=== PATIENT | female | born 1935 | race Caucasian/White ===

== ENCOUNTER → 2016-06-07 | Outpatient (CLI) | payer MEDICARE ==
[~2016-06-07] MED LIST: ATEN25TA PO; HYDR-3240 PO; HYDR12.53 PO; LISI2.5T PO; LISI5TAB7 PO; LOVA10TA PO; WARF5TAB PO
== END | disposition home or self-care (01) ==
LOC: LAB 08:27
PROVIDERS: ATTEND Nurse Practitioner Family
DX: I82.402 Acute embolism and thrombosis of unspecified deep veins of left lower extremity (principal)
CPT/HCPCS: 36415; 85610

== ENCOUNTER → 2016-07-05 | Outpatient (CLI) | payer MEDICARE | END | disposition home or self-care (01) | LOC: CFH 08:37 | PROVIDERS: ATTEND Nurse Practitioner Family | DX: I82.402 Acute embolism and thrombosis of unspecified deep veins of left lower extremity (principal) | CPT/HCPCS: 36415; 85610 ==

== ENCOUNTER → 2016-08-02 | Outpatient (CLI) | payer MEDICARE | END | disposition home or self-care (01) | LOC: CFH 08:25 | PROVIDERS: ATTEND Nurse Practitioner Family | DX: I82.402 Acute embolism and thrombosis of unspecified deep veins of left lower extremity (principal) | CPT/HCPCS: 36415; 85610 ==

== ENCOUNTER → 2016-08-30 | Outpatient (CLI) | payer MEDICARE | END | disposition home or self-care (01) | LOC: CFH 07:52 | PROVIDERS: ATTEND Nurse Practitioner Family | DX: I82.402 Acute embolism and thrombosis of unspecified deep veins of left lower extremity (principal) | CPT/HCPCS: 36415; 85610 ==

== ENCOUNTER → 2016-09-27 | Outpatient (CLI) | payer MEDICARE ==
[2016-09-27 12:55] LABS: ASPARTATE AMINO TRANSFERASE 25 U/L (15-37); BLOOD UREA NITROGEN 26 mg/dL (7-18)
== END | disposition home or self-care (01) ==
LOC: CFH 08:13
PROVIDERS: ATTEND Nurse Practitioner Family
DX: I82.402 Acute embolism and thrombosis of unspecified deep veins of left lower extremity (principal); E78.5 Hyperlipidemia, unspecified
CPT/HCPCS: 36415; 80053; 80061; 85025; 85610

== ENCOUNTER → 2016-10-25 | Outpatient (CLI) | payer MEDICARE | END | disposition home or self-care (01) | LOC: LAB 07:59 | PROVIDERS: ATTEND Nurse Practitioner Family | DX: I82.402 Acute embolism and thrombosis of unspecified deep veins of left lower extremity (principal) | CPT/HCPCS: 36415; 85610 ==

== ENCOUNTER → 2016-11-22 | Outpatient (CLI) | payer MEDICARE | END | disposition home or self-care (01) | LOC: LAB 09:01 | PROVIDERS: ATTEND Internal Medicine Cardiovascular Disease | DX: Z79.01 Long term (current) use of anticoagulants (principal) | CPT/HCPCS: 36415; 85610; 85730 ==

== ENCOUNTER → 2016-12-20 | Outpatient (CLI) | payer MEDICARE | END | disposition home or self-care (01) | LOC: CFH 08:28 | PROVIDERS: ATTEND Internal Medicine Cardiovascular Disease | DX: M17.11 Unilateral primary osteoarthritis, right knee (principal); I70.201 Unspecified atherosclerosis of native arteries of extremities, right leg; I74.2 Embolism and thrombosis of arteries of the upper extremities | CPT/HCPCS: 36415; 85610 ==

== ENCOUNTER → 2017-01-22 | Outpatient (CLI) | payer MEDICARE | END | disposition home or self-care (01) | LOC: CFH 08:56 | PROVIDERS: ATTEND Internal Medicine Cardiovascular Disease | DX: I74.2 Embolism and thrombosis of arteries of the upper extremities (principal) | CPT/HCPCS: 36415; 85610 ==

== ENCOUNTER → 2017-02-07 | Outpatient (CLI) | payer MEDICARE | END | disposition home or self-care (01) | LOC: LAB 09:53 | PROVIDERS: ATTEND Internal Medicine Cardiovascular Disease | DX: I74.2 Embolism and thrombosis of arteries of the upper extremities (principal) | CPT/HCPCS: 36415; 85610 ==

== ENCOUNTER → 2017-03-12 | Outpatient (CLI) | payer MEDICARE ==
[2017-03-12 12:51] LABS: INTERNATIONAL NORMALIZED RATIO 2.02 (0.93-1.1); PROTHROMBIN TIME 20.7 Seconds (9.6-11.5)
== END | disposition home or self-care (01) ==
LOC: CFH 08:42
PROVIDERS: ATTEND Internal Medicine Cardiovascular Disease
DX: I74.2 Embolism and thrombosis of arteries of the upper extremities (principal)
CPT/HCPCS: 36415; 85610

== ENCOUNTER → 2017-03-26 | Outpatient (CLI) | payer MEDICARE ==
[2017-03-26 12:47] LABS: INTERNATIONAL NORMALIZED RATIO 1.63 (0.93-1.1); PROTHROMBIN TIME 16.8 Seconds (9.6-11.5)
== END | disposition home or self-care (01) ==
LOC: CFH 08:31
PROVIDERS: ATTEND Internal Medicine Cardiovascular Disease
DX: I74.2 Embolism and thrombosis of arteries of the upper extremities (principal)
CPT/HCPCS: 36415; 85610

== ENCOUNTER → 2017-04-08 | Outpatient (CLI) | payer MEDICARE ==
[2017-04-08 11:55] LABS: INTERNATIONAL NORMALIZED RATIO 1.43 (0.93-1.1); PROTHROMBIN TIME 14.6 Seconds (9.6-11.5)
== END | disposition home or self-care (01) ==
LOC: CFH 10:05
PROVIDERS: ATTEND Internal Medicine Cardiovascular Disease
DX: I74.2 Embolism and thrombosis of arteries of the upper extremities (principal)
CPT/HCPCS: 36415; 85610

== ENCOUNTER → 2017-04-22 | Outpatient (CLI) | payer MEDICARE ==
[2017-04-22 12:48] LABS: INTERNATIONAL NORMALIZED RATIO 2.15 (0.93-1.1); PROTHROMBIN TIME 21.8 Seconds (9.6-11.5)
== END | disposition home or self-care (01) ==
LOC: LAB 08:41
PROVIDERS: ATTEND Internal Medicine Cardiovascular Disease
DX: I74.2 Embolism and thrombosis of arteries of the upper extremities (principal)
CPT/HCPCS: 36415; 85610

== ENCOUNTER → 2017-07-08 | Outpatient (CLI) | payer MEDICARE ==
[2017-07-08 12:34] LABS: INTERNATIONAL NORMALIZED RATIO 1.79 (0.93-1.1); PROTHROMBIN TIME 18.4 Seconds (9.6-11.5)
== END | disposition home or self-care (01) ==
LOC: CFH 08:46
PROVIDERS: ATTEND Internal Medicine Cardiovascular Disease
DX: I74.2 Embolism and thrombosis of arteries of the upper extremities (principal)
CPT/HCPCS: 36415; 85610

== ENCOUNTER → 2017-08-05 | Outpatient (CLI) | payer MEDICARE ==
[2017-08-05 12:41] LABS: INTERNATIONAL NORMALIZED RATIO 1.77 (0.93-1.1)
== END | disposition home or self-care (01) ==
LOC: CFH 08:26
PROVIDERS: ATTEND Internal Medicine Cardiovascular Disease
DX: I74.2 Embolism and thrombosis of arteries of the upper extremities (principal)
CPT/HCPCS: 36415; 85610

== ENCOUNTER → 2017-08-26 | Outpatient (CLI) | payer MEDICARE | END | disposition home or self-care (01) | LOC: CVU 12:30 | PROVIDERS: ATTEND Family Medicine | DX: I74.2 Embolism and thrombosis of arteries of the upper extremities (principal); I10 Essential (primary) hypertension; E78.5 Hyperlipidemia, unspecified; Z87.891 Personal history of nicotine dependence | CPT/HCPCS: 93922 ==

== ENCOUNTER → 2017-09-02 | Outpatient (CLI) | payer MEDICARE ==
[2017-09-02 12:37] LABS: INTERNATIONAL NORMALIZED RATIO 2.36 (0.93-1.1); PROTHROMBIN TIME 24.1 Seconds (9.6-11.5)
== END | disposition home or self-care (01) ==
LOC: CFH 08:08
PROVIDERS: ATTEND Internal Medicine Cardiovascular Disease
DX: I74.2 Embolism and thrombosis of arteries of the upper extremities (principal)
CPT/HCPCS: 36415; 85610

== ENCOUNTER → 2017-09-18 | Outpatient (CLI) | payer MEDICARE ==
[2017-09-18 12:55] LABS: INTERNATIONAL NORMALIZED RATIO 2.23 (0.93-1.1); PROTHROMBIN TIME 22.8 Seconds (9.6-11.5)
== END | disposition home or self-care (01) ==
LOC: CFH 09:55
PROVIDERS: ATTEND Internal Medicine Cardiovascular Disease
DX: I74.2 Embolism and thrombosis of arteries of the upper extremities (principal)
CPT/HCPCS: 36415; 85610

== ENCOUNTER → 2017-10-16 | Outpatient (CLI) | payer MEDICARE ==
[2017-10-16 13:08] LABS: INTERNATIONAL NORMALIZED RATIO 2.07 (0.93-1.1)
== END | disposition home or self-care (01) ==
LOC: CFH 07:58
PROVIDERS: ATTEND Internal Medicine Cardiovascular Disease
DX: I74.2 Embolism and thrombosis of arteries of the upper extremities (principal); Z87.891 Personal history of nicotine dependence
CPT/HCPCS: 36415; 85610

== ENCOUNTER → 2017-11-14 | Outpatient (CLI) | payer MEDICARE ==
[2017-11-14 13:38] LABS: INTERNATIONAL NORMALIZED RATIO 2.57 (0.93-1.1); PROTHROMBIN TIME 26.2 Seconds (9.6-11.5)
== END | disposition home or self-care (01) ==
LOC: CFH 08:56
PROVIDERS: ATTEND Internal Medicine Cardiovascular Disease
DX: I74.2 Embolism and thrombosis of arteries of the upper extremities (principal); Z87.891 Personal history of nicotine dependence
CPT/HCPCS: 36415; 85610

== ENCOUNTER → 2017-12-17 | Outpatient (CLI) | payer MEDICARE ==
[2017-12-17 12:54] LABS: INTERNATIONAL NORMALIZED RATIO 3.36 (0.93-1.1); PROTHROMBIN TIME 33.8 Seconds (9.6-11.5)
== END | disposition home or self-care (01) ==
LOC: CFH 08:45
PROVIDERS: ATTEND Internal Medicine Cardiovascular Disease
DX: I74.2 Embolism and thrombosis of arteries of the upper extremities (principal); Z79.01 Long term (current) use of anticoagulants
CPT/HCPCS: 36415; 85610

== ENCOUNTER → 2018-01-13 | Outpatient (CLI) | payer MEDICARE ==
[2018-01-13 12:38] LABS: BASOPHILS # (AUTO) 0.03 x10^3/uL (0-0.1); BASOPHILS % (AUTO) 1 % (0-1); EOSINOPHILS # (AUTO) 0.21 x10^3/uL (0-0.4); EOSINOPHILS % (AUTO) 3 % (1-7); LYMPHOCYTES % (AUTO) 25 % (22-44); MD NO; MEAN CORPUSCULAR HEMOGLOBIN 29.8 pg (27.0-34.8); MEAN CORPUSCULAR VOLUME 90.5 fL (80-100); MEAN PLATELET VOLUME 9.6 fL (7.4-10.4); MONOCYTES # (AUTO) 0.57 x10^3/uL (0.2-0.8); MONOCYTES % (AUTO) 8 % (2-9); NEUTROPHILS # (AUTO) 4.37 x10^3/uL (1.8-6.8); NEUTROPHILS % (AUTO) 64 % (42-75); PLATELET COUNT 282 x10^3/uL (130-400); RED BLOOD COUNT 4.74 x10^6/uL (3.82-5.3); RED CELL DISTRIBUTION WIDTH 14.4 % (9.6-15.2)
[2018-01-13 12:45] LABS: INTERNATIONAL NORMALIZED RATIO 2.59 (0.93-1.1); PROTHROMBIN TIME 26.5 Seconds (9.6-11.5)
[2018-01-13 12:49] LABS: ALBUMIN 4.1 g/dL (3.4-5.0); ANION GAP 9 mmol/L (5-15); CALCIUM 9.3 mg/dL (8.5-10.1); CHLORIDE 103 mmol/L (98-107)
[2018-01-13 12:52] LABS: ALANINE AMINOTRANSFERASE 26 U/L (12-78); ALKALINE PHOSPHATASE 82 U/L (45-117); BILIRUBIN,TOTAL 0.5 mg/dL (0.2-1.0); CHOL/HDL RATIO 2.7; CHOLESTEROL, TOTAL 234 mg/dL (140-239); CREATININE 0.86 mg/dL (0.55-1.02); HDL CHOL % 37 % (28-40); HDL CHOLESTEROL (DIRECT) 86 mg/dL (40-60); LDL CHOLESTEROL,CALCULATED 127 mg/dL (54-169); LDL/HDL RATIO 1.5 (0.5-3.0); TOTAL PROTEIN 8.2 g/dL (6.4-8.2); TRIGLYCERIDES 106 mg/dL (50-200); VLDL CHOLESTEROL 21 mg/dL (0-25)
== END | disposition home or self-care (01) ==
LOC: CFH 08:02
PROVIDERS: ATTEND Internal Medicine Cardiovascular Disease
DX: I10 Essential (primary) hypertension (principal); I74.2 Embolism and thrombosis of arteries of the upper extremities; Z79.01 Long term (current) use of anticoagulants
CPT/HCPCS: 36415; 80053; 80061; 85025; 85610

== ENCOUNTER → 2018-02-07 | Outpatient (CLI) | payer MEDICARE ==
[~2018-02-07] MED LIST changes: +HYDR12.517 PO; -HYDR12.53 PO
[2018-02-07 12:33] LABS: INTERNATIONAL NORMALIZED RATIO 2.83 (0.93-1.1); PROTHROMBIN TIME 28.8 Seconds (9.6-11.5)
== END | disposition home or self-care (01) ==
LOC: CFH 08:45
PROVIDERS: ATTEND Internal Medicine Cardiovascular Disease
DX: I74.2 Embolism and thrombosis of arteries of the upper extremities (principal)
CPT/HCPCS: 36415; 85610

== ENCOUNTER → 2018-03-07 | Outpatient (CLI) | payer MEDICARE ==
[2018-03-07 12:35] LABS: INTERNATIONAL NORMALIZED RATIO 3.12 (0.93-1.1); PROTHROMBIN TIME 31.7 Seconds (9.6-11.5)
== END | disposition home or self-care (01) ==
LOC: CFH 08:14
PROVIDERS: ATTEND Internal Medicine Cardiovascular Disease
DX: I74.2 Embolism and thrombosis of arteries of the upper extremities (principal)
CPT/HCPCS: 36415; 85610

== ENCOUNTER → 2018-03-31 | Outpatient (CLI) | payer MEDICARE ==
[2018-03-31 16:04] LABS: INTERNATIONAL NORMALIZED RATIO 2.2 (0.93-1.1); PROTHROMBIN TIME 22.6 Seconds (9.6-11.5)
== END | disposition home or self-care (01) ==
LOC: CFH 12:13
PROVIDERS: ATTEND Internal Medicine Cardiovascular Disease
DX: I74.2 Embolism and thrombosis of arteries of the upper extremities (principal); Z79.01 Long term (current) use of anticoagulants
CPT/HCPCS: 36415; 85610

== ENCOUNTER → 2018-04-29 | Outpatient (CLI) | payer MEDICARE ==
[2018-04-29 12:51] LABS: INTERNATIONAL NORMALIZED RATIO 2.14 (0.93-1.1); PROTHROMBIN TIME 21.8 Seconds (9.6-11.5)
== END | disposition home or self-care (01) ==
LOC: CFH 07:48
PROVIDERS: ATTEND Internal Medicine Cardiovascular Disease
DX: Z51.81 Encounter for therapeutic drug level monitoring (principal); I74.2 Embolism and thrombosis of arteries of the upper extremities; Z79.01 Long term (current) use of anticoagulants
CPT/HCPCS: 36415; 85610

== ENCOUNTER → 2018-05-26 | Outpatient (CLI) | payer MEDICARE ==
[2018-05-26 12:54] LABS: INTERNATIONAL NORMALIZED RATIO 2.94 (0.93-1.1); PROTHROMBIN TIME 29.6 Seconds (9.6-11.5)
== END | disposition home or self-care (01) ==
LOC: CFH 08:30
PROVIDERS: ATTEND Internal Medicine Cardiovascular Disease
DX: I74.2 Embolism and thrombosis of arteries of the upper extremities (principal); Z79.01 Long term (current) use of anticoagulants
CPT/HCPCS: 36415; 85610

== ENCOUNTER → 2018-06-23 | Outpatient (CLI) | payer MEDICARE ==
[2018-06-23 12:47] LABS: INTERNATIONAL NORMALIZED RATIO 2.89 (0.93-1.1); PROTHROMBIN TIME 29.1 Seconds (9.6-11.5)
== END | disposition home or self-care (01) ==
LOC: CFH 07:57
PROVIDERS: ATTEND Internal Medicine Cardiovascular Disease
DX: I74.2 Embolism and thrombosis of arteries of the upper extremities (principal); Z79.01 Long term (current) use of anticoagulants
CPT/HCPCS: 36415; 85610

== ENCOUNTER → 2018-07-28 | Outpatient (CLI) | payer MEDICARE ==
[2018-07-28 12:36] LABS: INTERNATIONAL NORMALIZED RATIO 2.03 (0.93-1.1); PROTHROMBIN TIME 20.7 Seconds (9.6-11.5)
== END | disposition home or self-care (01) ==
LOC: CFH 07:46
PROVIDERS: ATTEND Internal Medicine Cardiovascular Disease
DX: I74.2 Embolism and thrombosis of arteries of the upper extremities (principal); Z79.01 Long term (current) use of anticoagulants
CPT/HCPCS: 36415; 85610

== ENCOUNTER 2018-09-08 08:12 | Outpatient (CLI) | payer MEDICARE ==
[2018-09-08 13:09] LABS: INTERNATIONAL NORMALIZED RATIO 2.82 (0.93-1.1); PROTHROMBIN TIME 28.5 Seconds (9.6-11.5)
== END 2018-09-08 23:59 | disposition home or self-care (01) ==
LOC: CFH 08:12
PROVIDERS: ATTEND Internal Medicine Cardiovascular Disease
DX: I74.2 Embolism and thrombosis of arteries of the upper extremities (principal); Z79.01 Long term (current) use of anticoagulants
CPT/HCPCS: 36415; 85610

== ENCOUNTER → 2018-12-31 | Outpatient (CLI) | payer MEDICARE ==
[2018-12-31 13:05] LABS: INTERNATIONAL NORMALIZED RATIO 3.11 (0.93-1.1); PROTHROMBIN TIME 31.3 Seconds (9.6-11.5)
== END | disposition home or self-care (01) ==
LOC: CFH 08:27
PROVIDERS: ATTEND Internal Medicine Cardiovascular Disease
DX: D48.5 Neoplasm of uncertain behavior of skin (principal); D68.59 Other primary thrombophilia; E78.49 Other hyperlipidemia; I10 Essential (primary) hypertension; I74.2 Embolism and thrombosis of arteries of the upper extremities; I74.9 Embolism and thrombosis of unspecified artery; M25.561 Pain in right knee; M54.5 Low back pain; M79.609 Pain in unspecified limb; Z87.891 Personal history of nicotine dependence
CPT/HCPCS: 36415; 85610

== ENCOUNTER → 2019-01-19 | Outpatient (CLI) | payer MEDICARE ==
[2019-01-19 12:41] LABS: INTERNATIONAL NORMALIZED RATIO 2.99 (0.93-1.1); PROTHROMBIN TIME 30.1 Seconds (9.6-11.5)
[2019-01-19 12:55] LABS: BASOPHILS # (AUTO) 0.05 x10^3/uL (0-0.1); BASOPHILS % (AUTO) 1 % (0-1); EOSINOPHILS # (AUTO) 0.26 x10^3/uL (0-0.4); EOSINOPHILS % (AUTO) 3 % (1-7); LYMPHOCYTES # (AUTO) 1.45 x10^3/uL (1-3.4); LYMPHOCYTES % (AUTO) 19 % (22-44); MD NO; MEAN CORPUSCULAR HGB CONC 32.8 g/dL (32.4-35.8); MEAN CORPUSCULAR VOLUME 91.6 fL (80-100); MEAN PLATELET VOLUME 8.7 fL (7.4-10.4); MONOCYTES # (AUTO) 0.59 x10^3/uL (0.2-0.8); MONOCYTES % (AUTO) 8 % (2-9); NEUTROPHILS # (AUTO) 5.38 x10^3/uL (1.8-6.8); NEUTROPHILS % (AUTO) 70 % (42-75); PLATELET COUNT 302 x10^3/uL (130-400); RED CELL DISTRIBUTION WIDTH 13.7 % (9.6-15.2)
[2019-01-19 13:53] LABS: ALBUMIN 4.2 g/dL (3.4-5.0); CALCIUM 9.2 mg/dL (8.5-10.1); CHLORIDE 104 mmol/L (98-107)
[2019-01-19 13:58] LABS: ALANINE AMINOTRANSFERASE 25 U/L (12-78); ALKALINE PHOSPHATASE 78 U/L (45-117); ANION GAP 5 mmol/L (5-15); BILIRUBIN,TOTAL 0.4 mg/dL (0.2-1.0); CHOL/HDL RATIO 2.7; CHOLESTEROL, TOTAL 249 mg/dL (140-239); CREATININE 1.03 mg/dL (0.55-1.02); HDL CHOL % 37 % (28-40); HDL CHOLESTEROL (DIRECT) 93 mg/dL (40-60); LDL CHOLESTEROL,CALCULATED 133 mg/dL (54-169); LDL/HDL RATIO 1.4 (0.5-3.0); TRIGLYCERIDES 114 mg/dL (50-200); VLDL CHOLESTEROL 23 mg/dL (0-25)
== END | disposition home or self-care (01) ==
LOC: CFH 08:05
PROVIDERS: ATTEND Internal Medicine Cardiovascular Disease
DX: D48.5 Neoplasm of uncertain behavior of skin (principal); D68.59 Other primary thrombophilia; E78.49 Other hyperlipidemia; I10 Essential (primary) hypertension; I74.2 Embolism and thrombosis of arteries of the upper extremities; I74.9 Embolism and thrombosis of unspecified artery; M25.561 Pain in right knee; M54.5 Low back pain; M79.609 Pain in unspecified limb; F17.200 Nicotine dependence, unspecified, uncomplicated
CPT/HCPCS: 36415; 80053; 80061; 85025; 85610

== ENCOUNTER → 2019-02-11 | Outpatient (CLI) | payer MEDICARE ==
[2019-02-11 12:46] LABS: INTERNATIONAL NORMALIZED RATIO 2.79 (0.93-1.1); PROTHROMBIN TIME 28.2 Seconds (9.6-11.5)
== END | disposition home or self-care (01) ==
LOC: CFH 08:17
PROVIDERS: ATTEND Internal Medicine Cardiovascular Disease
DX: D48.5 Neoplasm of uncertain behavior of skin (principal); D68.59 Other primary thrombophilia; E78.49 Other hyperlipidemia; F17.200 Nicotine dependence, unspecified, uncomplicated; I10 Essential (primary) hypertension; I74.2 Embolism and thrombosis of arteries of the upper extremities; I74.9 Embolism and thrombosis of unspecified artery; M25.561 Pain in right knee; M54.5 Low back pain; M79.609 Pain in unspecified limb
CPT/HCPCS: 36415; 85610

== ENCOUNTER → 2019-03-19 | Outpatient (CLI) | payer MEDICARE ==
[2019-03-19 15:52] LABS: INTERNATIONAL NORMALIZED RATIO 2.76 (0.93-1.1); PROTHROMBIN TIME 29.6 Seconds (9.6-11.5)
== END | disposition home or self-care (01) ==
LOC: CFH 13:36
PROVIDERS: ATTEND Internal Medicine Cardiovascular Disease
DX: I74.9 Embolism and thrombosis of unspecified artery (principal); I74.2 Embolism and thrombosis of arteries of the upper extremities; I10 Essential (primary) hypertension; D48.5 Neoplasm of uncertain behavior of skin; D68.59 Other primary thrombophilia; E78.49 Other hyperlipidemia; M54.5 Low back pain; M25.561 Pain in right knee; M79.609 Pain in unspecified limb; F17.200 Nicotine dependence, unspecified, uncomplicated; Z79.01 Long term (current) use of anticoagulants
CPT/HCPCS: 36415; 85610

== ENCOUNTER 2019-07-21 07:42 | Inpatient (IN) | payer MEDICARE ==
[2019-07-21] VITALS (10 sets, daily range): BP systolic 101–166; BP diastolic 48–99
[~2019-07-21] VITALS: Ht 167.6 cm; Wt 54.1 kg
--- NOTE | 2019-07-21 07:58 | NUR ---
PT WHEELED TO ROOM FROM TRIAGE AT THIS TIME.
--- NOTE | 2019-07-21 08:35 | NUR ---
THIS IS A 83 YO F W/ C/O N/V AND GENERAL ABD PAIN X4 DAYS. PT REPORTS THERE HAS BEEN DARK RED BLOOD IN EMESIS. TAKES BLOOD THINNERS DOES NOT KNOW THE NAME. PT REPORTS COLOSTOMY. PT TACHYCARDIC, OTHER VS WDL. RESTING ON GURNEY W/ CALL LIGHT IN REACH AND FAMILY AT BEDSIDE. AT BEDSIDE FOR ED EVAL.
[2019-07-21] MEDS ORDERED: ONDANSETRON 2MG/ML, 2ML IVPush ONE (09:00)
[2019-07-21] MEDS ORDERED: SODIUM CHLORIDE 0.9% 1,000ML IVBOLUS ONE (09:00)
[2019-07-21] MEDS ORDERED: SODIUM CHLORIDE FLUSH 10ML SYR IVF ONE (09:00)
[2019-07-21] MEDS ORDERED: ONDANSETRON 2MG/ML, 2ML ONE (09:21)
[2019-07-21 09:24] LABS: MEAN CORPUSCULAR HEMOGLOBIN 29.7 pg (27.0-34.8); MEAN CORPUSCULAR HGB CONC 32.8 g/dL (32.4-35.8); MEAN CORPUSCULAR VOLUME 90.3 fL (80-100); PLATELET COUNT 667 x10^3/uL (130-400); RED BLOOD COUNT 2.45 x10^6/uL (3.82-5.3); RED CELL DISTRIBUTION WIDTH 15.4 % (9.6-15.2)
[2019-07-21] MEDS ORDERED: AZITHROMYCIN 500 MG in SODIUM CHLORIDE 0.9% 250 ML IV ONE (09:27)
--- NOTE | 2019-07-21 09:28 | NUR ---
MED REC DONE.
[2019-07-21 09:35] LABS: ALANINE AMINOTRANSFERASE 42 U/L (12-78); ALBUMIN 2.2 g/dL (3.4-5.0); ANION GAP 16 mmol/L (5-15); CALCIUM 8.1 mg/dL (8.5-10.1); CHLORIDE 103 mmol/L (98-107); CREATININE 1.11 mg/dL (0.55-1.02)
[2019-07-21 09:38] LABS: ALKALINE PHOSPHATASE 727 U/L (45-117); BILIRUBIN,TOTAL 0.5 mg/dL (0.2-1.0); TOTAL PROTEIN 6.7 g/dL (6.4-8.2)
--- NOTE | 2019-07-21 09:39 | NUR ---
PT STRAIGHT CATH'D. URINE WALKED TO LAB. PT COUGHING UP LARGE AMOUNT OF BRIGHT RED BLOOD. NOTIFIED.
--- NOTE | 2019-07-21 09:49 | NUR ---
CONSENT FOR TRANSFUSION SIGNED BY PT AND GIVEN TO PROVIDER.
[2019-07-21 09:58] LABS: MD YES
[2019-07-21] MEDS ORDERED: PANTOPRAZOLE 80 MG in SODIUM CHLORIDE 0.9% 50 ML IVPB ONE (10:00)
[2019-07-21] MEDS ORDERED: PANTOPRAZOLE 80 MG in SODIUM CHLORIDE 0.9% 100 ML IV SCH (10:00)
[2019-07-21] MEDS ORDERED: FAMOTIDINE 20 MG/2 ML IVPush ONE (10:00)
[2019-07-21] MEDS: SODIUM CHLORIDE 0.9% 1,000ML IVBOLUS ONE ×2 (10:00→10:25)
[2019-07-21] MEDS ORDERED: CEFTRIAXONE PMX 1GM/50ML 50 ML IVPB ONE (10:00)
[2019-07-21 10:01] LABS: MICROSCOPIC INDICATED
--- NOTE | 2019-07-21 10:05 | NUR ---
NEW ONSET OF EXPIRATORY CRACKLES NOTED. PT BEGAN TO COMPLAIN OF INCREASED LETHARGY. PT HAD RHYTHM CHANGE FROM SINUS TACH INTO A WIDE COMPLEX TACHYCARDIA, PT THEN BECAME HYPOXIC, PLACED ON 16L NON REBREATHER WITH LITTLE EFFECT, NOTIFIED AND IN ROOM. PT NORMOTENSIVE AT THIS TIME. BLOOD TRANSFUSION BEGAN PT MOVED TO TRAUMA ROOM FOR INTUBATION AND CENTRAL LINE. REPORT GIVEN TO BLAYNE RAYO.
[2019-07-21 10:08] LABS: BAND#(MANUAL) 1.26 x10^3/uL; BANDS%(MANUAL) 5 % (0-7); LYMPH#(MANUAL) 0.25 x10^3/uL (1-3.4); LYMPHS% (MANUAL) 1 % (22-44); MONOS#(MANUAL) 1.01 x10^3/uL (0.3-2.7); MONOS% (MANUAL) 4 % (2-9); SEG#(MANUAL) 22.68 x10^3/uL (1.8-6.8); SEGS% (MANUAL) 90 % (42-75)
[2019-07-21 10:09] LABS: <PLATELET ESTIMATE> INCREASED; <PLT MORPHOLOGY> NORMAL PLT MORPH; POLYCHROMASIA 1+
[2019-07-21 10:10] LABS: ANISOCYTOSIS 1+
[2019-07-21] MEDS: MIDAZOLAM 1 MG/ML, 2ML IVPush PRN ×2 (10:30→11:20)
[2019-07-21] MEDS ORDERED: NOREPINEPHRINE 8 MG in SODIUM CHLORIDE 0.9% 242 ML IV PRN (10:39)
[2019-07-21] MEDS ORDERED: PROPOFOL 100 ML IV PRN (10:39)
--- NOTE | 2019-07-21 10:47 | NUR ---
LATE ENTRY FOR 1005, PT MOVED TO TRAUMA 3 AND PT CARE ASSUMED
[2019-07-21] MEDS ORDERED: DOXYCYCLINE 100 MG in DEXTROSE 5% 250 ML IV SCH (11:00)
[2019-07-21] MEDS ORDERED: LIDOCAINE-MPF 1%, 2ML ENDO PRN (11:00)
[2019-07-21] MEDS ORDERED: CEFTRIAXONE PMX 1GM/50ML 50 ML IV SCH (11:00)
[2019-07-21] MEDS ORDERED: PHARMACY MAY ADJ FOR RENAL FX MC SCH (11:00)
[2019-07-21] MEDS ORDERED: ETOMIDATE 20 MG/10 ML IVPush ONE (11:00)
[2019-07-21] MEDS ORDERED: PANTOPRAZOLE 40 MG IV IV SCH (11:00)
[2019-07-21] MEDS ORDERED: FENTANYL PF 100 MCG/2ML IVPush PRN (11:00)
[2019-07-21] MEDS ORDERED: SODIUM CHLORIDE 0.9% 1,000 ML IV SCH ×2 (11:00→12:39)
[2019-07-21] MEDS ORDERED: CEFTRIAXONE PMX 1GM/50ML 50 ML ONE (11:03)
[2019-07-21 11:49] LABS: FIO2 100 %
[2019-07-21] MEDS ORDERED: SODIUM BICARBONATE 1 MEQ/ML, 50ML VIAL ONE (12:13)
[2019-07-21 12:36] LABS: PROTHROMBIN TIME > 148.7 Seconds (9.6-11.5)
[2019-07-21 12:37] LABS: INTERNATIONAL NORMALIZED RATIO > 22.45 (0.93-1.1); PARTIAL THROMBOPLASTIN TIME > 153 Seconds (25-31)
[2019-07-21] MEDS ORDERED: SODIUM BICARBONATE 1 MEQ/ML, 50ML VIAL IVPush STA (12:38)
--- NOTE | 2019-07-21 12:48 | NUR ---
LATE ENTRY FOR EVENTS FROM 1005 - 1[address] AZUL AT BEDSIDE. OREDER REC'D FOR INTUBATION. PT MED NOTED WITH 10MG ETOMIDATE WITH EFFECT. PT INTUBATED BY DR AZUL 7.5 ORAL ETT, PLACEMENT CHECK BY AUSCULTATION AND ETCO2. PT VSS NOTED. BLOOD INFUSING W/O DIFFICULTY NOTED. 1030 PT MED WITH VERSED 2MG IVP, PT REMAINS SEDATED AND NAD NOTED. 1100 RIGHT IJ TLC INSERTED BY DR AZUL, RN INSERTED 18FR ORAL GASTRIC TUBEAND SECURED TO ETT. PLACEMENT CHECKED BY ASPIRATION + DARK THICK OUTPUT NOTED. 1120 PT MED WITH 2MG VERSED NOTED, VSS, AND NAD NOTED. DAS CATH INSERTED BY ER JONNA HEDRICK. +CLOUDY DARK BROWN UOP NOTED. PT TOLLERATED WELL NAD NOTED. NS SEPSIS BOLUSES COMPLETED BY 1110.
[2019-07-21] MEDS ORDERED: MIDAZOLAM HCL 50 MG in SODIUM CHLORIDE 0.9% 40 ML IV PRN (13:00)
[2019-07-21] MEDS ORDERED: PHYTONADIONE 10 MG in SODIUM CHLORIDE 0.9% 50 ML IV ONE (13:00)
--- NOTE | 2019-07-21 13:16 | NUR ---
CONTACTED PTS SON, JOHN [phone]. INFORMED HIM OF HIS MOTHERS TRANSFER TO ICU RM [id number] AND PROVIDED HIM WITH THE DIRECT PHONE NUMBER TO THE UNIT.
[2019-07-21] MEDS ORDERED: LORazepam 2 MG/ML, 1ML IVPush PRN (15:00)
[2019-07-21] MEDS ORDERED: morphine SULFATE 10 MG/ML, 1ML IV ONE (15:00)
[2019-07-21] MEDS ORDERED: LORazepam 2 MG/ML, 1ML IV ONE (15:00)
[2019-07-21] MEDS ORDERED: MORPHINE SULFATE 4 MG/ML, 1ML IVPush PRN (15:00)
[2019-07-21] MEDS ORDERED: MOVIPREP POWDER 1 PREP KIT PO ONE (15:30)
[2019-07-22] MEDS ORDERED: PHYTONADIONE 10 MG/ML, 1ML SQ SCH (09:00)
== END 2019-07-21 21:03 | disposition expired | DRG 871 ==
LOC: ED 08:30 → EDIP 09:31 → CCU 12:34
PROVIDERS: ADMIT Hospitalist; ATTEND Hospitalist
PROC: 5A1935Z Respiratory Ventilation, Less than 24 Consecutive Hours (ICD-10-PCS; principal; 2019-07-21)
PROC: 0BH17EZ Insertion of Endotracheal Airway into Trachea, Via Natural or Artificial Opening (ICD-10-PCS; 2019-07-21)
PROC: 0T9B70Z Drainage of Bladder with Drainage Device, Via Natural or Artificial Opening (ICD-10-PCS; 2019-07-21)
PROC: 02HV33Z Insertion of Infusion Device into Superior Vena Cava, Percutaneous Approach (ICD-10-PCS; 2019-07-21)
PROC: 30233K1 Transfusion of Nonautologous Frozen Plasma into Peripheral Vein, Percutaneous Approach (ICD-10-PCS; 2019-07-21)
PROC: 30233N1 Transfusion of Nonautologous Red Blood Cells into Peripheral Vein, Percutaneous Approach (ICD-10-PCS; 2019-07-21)
PROC: B548ZZA Ultrasonography of Superior Vena Cava, Guidance (ICD-10-PCS; 2019-07-21)
DX: A41.9 Sepsis, unspecified organism (principal); J96.01 Acute respiratory failure with hypoxia; G93.41 Metabolic encephalopathy; J15.6 Pneumonia due to other Gram-negative bacteria; D62 Acute posthemorrhagic anemia; D68.69 Other thrombophilia; N39.0 Urinary tract infection, site not specified; K92.1 Melena; D68.32 Hemorrhagic disorder due to extrinsic circulating anticoagulants; R64 Cachexia; Z51.5 Encounter for palliative care; Z66 Do not resuscitate; E78.5 Hyperlipidemia, unspecified; I10 Essential (primary) hypertension; R74.8 Abnormal levels of other serum enzymes; R57.8 Other shock; R57.1 Hypovolemic shock; T45.515A Adverse effect of anticoagulants, initial encounter; Z96.643 Presence of artificial hip joint, bilateral; Z20.828 Contact with and (suspected) exposure to other viral communicable diseases; Z79.01 Long term (current) use of anticoagulants; Z85.038 Personal history of other malignant neoplasm of large intestine; Z86.718 Personal history of other venous thrombosis and embolism; Z87.891 Personal history of nicotine dependence; Z93.3 Colostomy status
CPT/HCPCS: 36415; 36600; 71045; 80053; 81001; 82803; 83605; 83690; 84478; 85018; 85025; 85610; 85730; 86850; 86900; 86923; 87040; 87070; 87077; 87081; 87086; 87186; 87205; 93005; 94002; 96361; 96374; 96375; 96376; 99291; G0378; J0456; J0696; J2250; J2405; J3430; J7060; C9113; J2060; J2270; J7030; J7050; P9016; P9017; U0001-CS